=== PATIENT | female | born 1985 | race Two or more races ===

== ENCOUNTER 2024-01-17 10:01 | Outpatient (RCR) | payer MEDICAID, SELFPAY | END 2024-02-12 23:59 | disposition home or self-care (01) | LOC: SCTC 10:01 | PROVIDERS: PCP Family Medicine; Referring Provider Family Medicine; Visit Provider Nurse Practitioner Family | DX: Z08 Encounter for follow-up examination after completed treatment for malignant neoplasm (principal); Z85.038 Personal history of other malignant neoplasm of large intestine; Z90.49 Acquired absence of other specified parts of digestive tract; K76.89 Other specified diseases of liver | CPT/HCPCS: 99212; G0463 ==

== ENCOUNTER 2024-07-17 15:51 | Outpatient (RCR) | payer MEDICAID, SELFPAY | END 2024-08-11 23:59 | disposition home or self-care (01) | LOC: SCTC 15:51 | PROVIDERS: PCP Family Medicine; Referring Provider Nurse Practitioner Family; Visit Provider Nurse Practitioner Family | DX: Z08 Encounter for follow-up examination after completed treatment for malignant neoplasm (principal); Z85.038 Personal history of other malignant neoplasm of large intestine; Z90.49 Acquired absence of other specified parts of digestive tract | CPT/HCPCS: 99212; G0463 ==

== ENCOUNTER 2024-09-04 07:13 | Outpatient (RCR) | payer MEDICAID, SELFPAY | END 2024-09-11 23:59 | disposition home or self-care (01) | LOC: SCTC 07:13 | PROVIDERS: PCP Family Medicine; Referring Provider Family Medicine; Visit Provider Nurse Practitioner Family | DX: Z85.038 Personal history of other malignant neoplasm of large intestine (principal); Z90.49 Acquired absence of other specified parts of digestive tract | CPT/HCPCS: 36591 ==

== ENCOUNTER 2025-01-12 15:29 | Outpatient (RCR) | payer MEDICAID, SELFPAY | END 2025-02-11 23:59 | disposition home or self-care (01) | LOC: SCTC 15:29 | PROVIDERS: PCP Family Medicine; Referring Provider Family Medicine; Visit Provider Nurse Practitioner Family | DX: Z08 Encounter for follow-up examination after completed treatment for malignant neoplasm (principal); Z85.038 Personal history of other malignant neoplasm of large intestine; Z90.49 Acquired absence of other specified parts of digestive tract | CPT/HCPCS: 99212; G0463 ==